=== PATIENT | male | born 1970 | race Caucasian/White ===

== ENCOUNTER 2017-11-25 05:38 | Day surgery (SDC) | payer OTHER ==
[~2017-11-25] VITALS: Ht 182.9 cm; Wt 85.7 kg
[~2017-11-25 05:38] MED LIST: ALPHA LIPOIC A300 MG PO; CHLORTHALIDONE25 MG PO; COZAAR25 MG PO; GABAPENTIN600 MG PO; HYDROXYZINE HCL50 MG PO; IMITREX50 MG PO; INDOMETHACIN50 MG PO; LISINOPRIL10 MG PO; NAPROXEN500 M1 PO
[2017-11-25] MEDS ORDERED: COZAAR50 MG PO (05:47)
[2017-11-25] MEDS ORDERED: NORVASC10 MG PO (05:47)
--- NOTE | 2017-11-25 08:58 | NUR ---
11/25/17 0858 Ev Hernandez 0868-PATIENT ARRIVED TO PACU ON 6L MASK O2 SAT 100% PATIENT NONAROUSABLE RN HOLDING AIRWAY. RIGHT GROIN DRESSING CDI. SB/SR
[2017-11-25] MEDS ORDERED: HYDROCODON-ACE1 EA10 PO (09:20)
[2017-11-25] MEDS ORDERED: MAPAP325 MG PO (09:20)
[2017-11-25] MEDS ORDERED: IBUPROFEN600 MG PO (09:20)
--- NOTE | 2017-11-25 10:12 | NUR ---
IN TO CHECK ON PT, PT SLEEPING. GUARDS AT BEDSIDE. O2 PER NC IN PLACE. DENIES PAIN OR NAUSEA. NO FURTHER NEEDS AT THIS TIME, CALL LIGHT IN REACH.
--- NOTE | 2017-11-25 14:13 | NUR ---
PT RESTING WITH GUARDS AT HIS SIDE. HE ACKNOWLEDGED MY PRESENCE, AND ANSWERED WITH "YES OR NO" ANSWERS. SEEMED SOMEWHAT DISINTERESTED. EXTENDED A BLESSING. WILL FOLLOW NEEDED
--- NOTE | 2017-11-26 13:21 | OR ---
[facility] [address] [place], [place] [address] Signed DATE OF OPERATION: 11/25/2017 SURGEON: Darryl Goldsmith MD PREOPERATIVE DIAGNOSIS: Right inguinal hernia. POSTOPERATIVE DIAGNOSIS: Right direct inguinal hernia. PROCEDURE: Repair of right direct inguinal hernia with implantation of mesh (underlay technique). ANESTHESIA: General LMA (Darryl Ko CRNA) and local 20 mL of 0.25% Marcaine without epinephrine. INDICATIONS: This is a 47-year-old white man, who is a prisoner at [facility], and a patient of Dr. Edilberto Velasco. He has been identified as having a painful right inguinal hernia. It is reducible. He is admitted at this time to undergo repair. Understand the risks of bleeding, infection, and recurrence. He currently does have hepatitis C. FINDINGS: A direct hernia was noted. There is general attenuation of the floor of the canal medial to the inferior epigastric vessels. No sign of indirect sac. Additionally, there was a distinct defect in the floor with protrusion of properitoneal fat. Fascia of the transversalis was divided and implantation of Prolene mesh undertaken in an underlay technique allowing for good repair of the floor. Cord structures were normal. An ilioinguinal nerve branch was identified and preserved. DESCRIPTION OF PROCEDURE: The patient was brought to the operating room and given a general and general anesthetic by LMA technique. Preoperative antibiotic Ancef was given. Sequential compression device stockings used and heparin subcutaneously administered. Lower abdomen was clipped and prepared with chlorhexidine solution and draped sterilely. Small incisions were made in the right groin. Dissection carried through the subcutaneous tissue with electrocautery. The external oblique was incised along its fibers, opened, and the ilioinguinal nerve dissected free from the cremasteric muscle fibers and reflected around the external oblique. The cord was more fully mobilized from the floor and encircled with a [place] drain. Dissection in the floor showed there to be a direct Electronically Signed By: DARRYL GOLDSMITH MD 11/26/17 1321 PATIENT NAME: KATHY SANCHEZ OPERATIVE REPORT DATE OF : 72 PHYSICIAN: DARRYL GOLDSMITH MD REPORT #: [id number] REPORT IS CONFIDENTIAL AND NOT TO BE RELEASED WITHOUT AUTHORIZATION [facility] [address] [place] [id number] Signed fascial defect in the floor and further dissection near the cord showed no sign of indirect sac. Additional attenuation of the fascia of transversalis was noted medial to the inferior epigastric vessels. Again, there was no evidence of indirect hernia. An Allis clamp was applied to the tendon of the transversus abdominis and using electrocautery, the fascia of the transversalis was incised and the properitoneal fat bluntly . The segment of Prolene mesh was cut to an elliptical configuration and secured in an underlay technique with interrupted 2-0 Prolene sutures. A defect was cut in the graft to accommodate the cord structures. The tails of the graft were secured laterally without problem. Special care was taken to avoid encumbrance of the ilioinguinal nerve branch. A 20 mL of 0.25% Marcaine was injected locally for postoperative analgesic effect. The cord was replaced into the canal as was the ilioinguinal nerve and the external oblique reapproximated carefully with running 2-0 Vicryl suture. Sarah's layer was reapproximated with interrupted 2-0 Vicryl and skin closed with running subcuticular 3-0 Vicryl. Steri-Strips were applied as was Mepilex silver sponge dressing and an OpSite. The patient tolerated the procedure well, was taken to recovery room in good condition having suffered no complications. Sponge, needle, and instrument counts reported as correct x3. MD GOVIND Guerra/MODL /[id number] cc: Edilberto Velasco MD [facility] Electronically Signed By: DARRYL GOLDSMITH MD 11/26/17 1321 PATIENT NAME: KATHY SANCHEZ OPERATIVE REPORT DATE OF : 72 PHYSICIAN: DARRYL GOLDSMITH MD REPORT #: [id number] REPORT IS CONFIDENTIAL AND NOT TO BE RELEASED WITHOUT AUTHORIZATION
== END 2017-11-25 11:10 | disposition home or self-care (01) ==
LOC: DS 05:38
PROVIDERS: Surgery
PROC: 0YU Anatomical Regions, Lower Extremities, Supplement (ICD-10-PCS; principal; 2017-11-25 06:45)
DX: K40.90 Unilateral inguinal hernia, without obstruction or gangrene, not specified as recurrent (principal); Z86.19 Personal history of other infectious and parasitic diseases; Z98.890 Other specified postprocedural states; Z88.8 Allergy status to other drugs, medicaments and biological substances
CPT/HCPCS: 00830; C1781; J0690; J1100; J1644; J1885; J2250; J2405; J2704; J2765; J3010; J7120